=== PATIENT | male | born 1955 | race Caucasian/White ===

== ENCOUNTER 2017-05-02 15:09 | Emergency (ER) | payer MEDICAID ==
[~2017-05-02] VITALS: Ht 185.4 cm; Wt 100.0 kg
[2017-05-02] MEDS ORDERED: SODIUM CHLORIDE 0.9% 1,000 ML IV ONE (15:38)
[2017-05-02] MEDS ORDERED: GLUCAGON 1 MG ONE (15:51)
[2017-05-02] MEDS ORDERED: SODIUM CHLORIDE FLUSH 10ML SYR IVF ONE (16:00)
[2017-05-02] MEDS ORDERED: ONDANSETRON 2MG/ML, 2ML IVPush ONE (16:00)
[2017-05-02] MEDS ORDERED: GLUCAGON 1 MG IVPush ONE (16:00)
[2017-05-02 16:03] LABS: HEMATOCRIT 50.4 % (39.2-51.8); HEMOGLOBIN 16.7 g/dL (13.7-18.0); WHITE BLOOD COUNT 6.7 x10^3/uL (3.4-10)
[2017-05-02 16:13] LABS: BLOOD UREA NITROGEN 13 mg/dL (7-18)
[2017-05-02 16:17] LABS: ASPARTATE AMINO TRANSFERASE 29 U/L (15-37)
[2017-05-02] MEDS ORDERED: FENTANYL PF 100 MCG/2ML ONE ×2 (18:13→18:16)
[2017-05-02] MEDS ORDERED: MIDAZOLAM 1 MG/ML, 5ML ONE ×2 (18:13→18:16)
[2017-05-02] MEDS ORDERED: DIPHENHYDRAMINE 50 MG/ML, 1ML ONE (18:16)
[2017-05-02 19:34] VITALS: BP 141/101
== END 2017-05-02 19:41 | disposition home or self-care (01) ==
LOC: ED 15:18
DX: T18.128A Food in esophagus causing other injury, initial encounter (principal); K21.0 Gastro-esophageal reflux disease with esophagitis; I10 Essential (primary) hypertension; F17.200 Nicotine dependence, unspecified, uncomplicated; X58.XXXA Exposure to other specified factors, initial encounter; Y93.89 Activity, other specified; Y92.89 Other specified places as the place of occurrence of the external cause; Y99.8 Other external cause status
CPT/HCPCS: 36415; 43247; 74022; 80053; 83690; 85025; 96361; 96374; 99285; J1610; J7030

== ENCOUNTER 2018-05-17 21:04 | Emergency (ER) | payer MEDICAID ==
[~2018-05-17] VITALS: Ht 185.4 cm; Wt 105.0 kg
[2018-05-17] MEDS ORDERED: PROPOFOL 10 MG/ML, 20ML ONE (21:43)
[2018-05-17] MEDS ORDERED: PROPOFOL 10 MG/ML, 20ML IVPush ONE (22:00)
[2018-05-17 22:47] VITALS: BP 169/121
== END 2018-05-18 00:31 | disposition home or self-care (01) ==
LOC: ED 23:59
DX: T18.128A Food in esophagus causing other injury, initial encounter (principal); G89.29 Other chronic pain; F17.200 Nicotine dependence, unspecified, uncomplicated; I10 Essential (primary) hypertension; X58.XXXA Exposure to other specified factors, initial encounter; Y93.89 Activity, other specified; Y92.89 Other specified places as the place of occurrence of the external cause; Y99.8 Other external cause status
CPT/HCPCS: 99152; 99285

== ENCOUNTER 2020-03-27 17:24 | Emergency (ER) | payer MEDICAID ==
[~2020-03-27] VITALS: Ht 185.4 cm; Wt 105.1 kg
[2020-03-27 17:36] VITALS: BP 159/118
--- NOTE | 2020-03-27 17:44 | NUR ---
ARCADIO DUFFY AT BEDSIDE FOR EVALUATION. YOLIS PROVIDED PO WITH RELIEF OF CHICKEN STUCK.
--- NOTE | 2020-03-27 17:48 | NUR ---
DISCHARGE INSTRUCTIONS REVIEWED
== END 2020-03-27 18:03 | disposition home or self-care (01) ==
LOC: ED 17:35
DX: T18.128A Food in esophagus causing other injury, initial encounter (principal); I10 Essential (primary) hypertension; G89.29 Other chronic pain; X58.XXXA Exposure to other specified factors, initial encounter; Y93.89 Activity, other specified; Y92.89 Other specified places as the place of occurrence of the external cause; Y99.8 Other external cause status
CPT/HCPCS: 99283

== ENCOUNTER 2020-07-15 16:23 | Emergency (ER) | payer MEDICAID ==
[~2020-07-15] VITALS: Ht 185.4 cm; Wt 108.0 kg
[2020-07-15 16:40] VITALS: BP 148/109
--- NOTE | 2020-07-15 20:08 | NUR ---
NIL X 1
--- NOTE | 2020-07-15 20:20 | NUR ---
NIL X 2
--- NOTE | 2020-07-15 20:33 | NUR ---
NIL X 3
== END 2020-07-15 20:35 | disposition left against medical advice (07) ==
LOC: ED 20:15
DX: T18.108A Unspecified foreign body in esophagus causing other injury, initial encounter (principal); X58.XXXA Exposure to other specified factors, initial encounter; Y93.89 Activity, other specified; Y92.89 Other specified places as the place of occurrence of the external cause; Y99.8 Other external cause status
CPT/HCPCS: 99281

== ENCOUNTER 2021-01-29 17:30 | Emergency (ER) | payer MEDICAID ==
[~2021-01-29] VITALS: Ht 185.4 cm; Wt 125.0 kg
--- NOTE | 2021-01-29 17:46 | NUR ---
radha after patient drank 1 pint of hard alcohol for 5 days straight. pt states "he feels like he is going to " pt states last drink was two hours ago. pt recently d/c from [facility] where he was intubated for pnumonia. hx of copd and etoh. pt attached to monitors. vss. nadn. awaiting orders.
[2021-01-29] MEDS ORDERED: THIAMINE 100MG TABLET ONE (18:04)
[2021-01-29] MEDS ORDERED: SODIUM CHLORIDE 0.9% 1,000ML IVBOLUS ONE (18:30)
[2021-01-29] MEDS ORDERED: THIAMINE 100MG TABLET PO ONE (18:30)
[2021-01-29] MEDS ORDERED: SODIUM CHLORIDE FLUSH 10ML SYR IVF ONE (19:00)
--- NOTE | 2021-01-29 19:04 | NUR ---
Kvng ellis in [facility] - 01/29/21 at 1923 by [email or web address] REPORT TO JADE
[2021-01-29 19:33] VITALS: BP 151/98
--- NOTE | 2021-01-29 19:50 | NUR ---
Patient given discharge instructions and they have confirmed that they understand the instructions. Patient ambulatory with steady gait. No questions at time of discharge.
== END 2021-01-29 19:51 | disposition home or self-care (01) ==
LOC: ED 19:30
DX: F10.220 Alcohol dependence with intoxication, uncomplicated (principal); Z72.9 Problem related to lifestyle, unspecified; F17.210 Nicotine dependence, cigarettes, uncomplicated; R00.0 Tachycardia, unspecified; G89.29 Other chronic pain; I10 Essential (primary) hypertension; Y90.0 Blood alcohol level of less than 20 mg/100 ml
CPT/HCPCS: 99283; 99406; J7030